=== PATIENT | female | born 1965 | race Caucasian/White ===

== ENCOUNTER 2023-12-10 14:24 | Inpatient (IN) | payer MEDICARE ==
[~2023-12-10] VITALS: Ht 149.9 cm; Wt 49.6 kg
[2023-12-10] MEDS ORDERED: METH25TAB PO (14:41)
[2023-12-10] MEDS ORDERED: AMLO1TAB24 PO (14:41)
[2023-12-10] MEDS ORDERED: OXYC20TA2 PO (14:41)
[2023-12-10] MEDS ORDERED: LISI20TA33 PO (14:41)
[2023-12-10] MEDS ORDERED: GABA800T4 PO (14:41)
[2023-12-10] MEDS ORDERED: ALBU2.5V10 INH (14:41)
[2023-12-10] MEDS ORDERED: ADV250INH INH (14:41)
[2023-12-10 16:19] LABS: BASO % 0.2 % (0.0-1.0); EOS % 0.1 % (0.0-3.0); HEMATOCRIT 45.5 % (36.0-47.0); HEMOGLOBIN 15.1 g/dl (12.0-15.5); LYMPH # 0.7 10^3/uL (1.5-5.0); LYMPH % 3.5 % (24.0-44.0); MEAN CORPUSCULAR HEMOGLOBIN 31.8 pg (27.0-33.0); MEAN CORPUSCULAR HGB CONC 33.2 g/dl (32.0-36.5); MEAN CORPUSCULAR VOLUME 95.8 fl (80.0-96.0); MONO # 1.2 10^3/uL (0.0-0.8); MONO % 6.3 % (2.0-8.0); NEUTROPHILS # 16.6 10^3/uL (1.5-8.5); NEUTROPHILS % 88.9 % (36.0-66.0); PLATELET COUNT, AUTOMATED 211 10^3/uL (150-450); RED BLOOD COUNT 4.75 10^6/uL (4.00-5.40); WHITE BLOOD COUNT 18.7 10^3/uL (4.0-10.0)
[2023-12-10 16:48] LABS: ALBUMIN 3.5 G/DL (3.2-5.2); BILIRUBIN,DIRECT 0.3 MG/DL (<0.4); TOTAL PROTEIN 6.2 G/DL (5.7-8.2)
[2023-12-10] MEDS: cefTRIAXone SOD 1 GM in D5W MINI-BAG PLUS 50 ML IV ONE (17:23)
[2023-12-10] MEDS: ACETAMINOPHEN TAB 650MG DOSE (2X325MG) PO ONE (17:23)
[2023-12-10 17:42] LABS: FREE T4 1.12 NG/DL (0.89-1.76); THYROID STIMULATING HORMONE 1.662 uIU/ML (0.55-4.78)
[2023-12-10] MEDS: LR 1,000 ML IV ONE (20:11)
[2023-12-10] MEDS: MORPHINE 2 MG/ML 1ML VIAL IV ONE (20:40)
[2023-12-10 20:42] LABS: INR 0.99; PROTHROMBIN TIME 12.8 SECONDS (12.5-14.5)
[2023-12-10 21:01] LABS: BLOOD UREA NITROGEN 11 MG/DL (9-23); CALCIUM LEVEL 8.3 MG/DL (8.5-10.1); CARBON DIOXIDE LEVEL 26 MMOL/L (20-31); CHLORIDE LEVEL 99 MMOL/L (98-107); CREATININE FOR GFR 0.92 MG/DL (0.55-1.30); GLOMERULAR FILTRATION RATE > 60.0 (>51); GLUCOSE, FASTING 103 MG/DL (60-100); MAGNESIUM LEVEL 1.7 MG/DL (1.8-2.4); POTASSIUM SERUM 4.2 MMOL/L (3.5-5.1); SODIUM LEVEL 132 MMOL/L (136-145)
[2023-12-10 21:08] LABS: PROCALCITONIN 10.06 ng/ml
[2023-12-10] MEDS: LR 1,000 ML IV SCH (21:18)
[2023-12-10] MEDS: methylPREDNISolone 125MG 2ML VIAL IV ONE (21:38)
[2023-12-10] MEDS: IPRATROPIUM 0.5MG/ALBUTEROL 2.5MG INH SOL UD 3ML (DUONEB) NEB ONE (21:53)
[2023-12-10] MEDS ORDERED: AZIT-12 PO (22:14)
[2023-12-10] MEDS ORDERED: HOME MED LIST COMPLETE! XX SCH (22:15)
[2023-12-10] MEDS ORDERED: ACETAMINOPHEN TAB 650MG DOSE (2X325MG) PO PRN (22:50)
[2023-12-10] MEDS ORDERED: ALBUTEROL SULFATE 2.5MG/0.5ML INH NEB SOLN NEB PRN (22:55)
[2023-12-10] MEDS: oxyCODONE 5MG TAB PO PRN (23:53)
[2023-12-11 00:40] VITALS: BP 161/73; TEMP 97.7; O2SAT 61
[2023-12-11] MEDS: GABAPENTIN 400MG CAP PO SCH (01:04)
[2023-12-11] MEDS: LR 1,000 ML IV SCH (01:05)
[2023-12-11] MEDS: IPRATROPIUM 0.5MG/ALBUTEROL 2.5MG INH SOL UD 3ML (DUONEB) NEB SCH (02:56)
[2023-12-11 04:10] VITALS: BP 126/48; TEMP 97.7; O2SAT 91
[2023-12-11] MEDS: methylPREDNISolone 125MG 2ML VIAL IV SCH (06:02)
[2023-12-11] MEDS: HEPARIN SOD (PORCINE) 5000UNITS/ML 1ML VIAL/SYRINGE SC SCH (06:02)
[2023-12-11] MEDS: amLODIPine 5 MG TAB PO SCH (08:08)
[2023-12-11 08:22] LABS: HEMATOCRIT 37.9 % (36.0-47.0); MEAN CORPUSCULAR HEMOGLOBIN 32.1 pg (27.0-33.0); MEAN CORPUSCULAR HGB CONC 33.2 g/dl (32.0-36.5); MEAN CORPUSCULAR VOLUME 96.7 fl (80.0-96.0); PLATELET COUNT, AUTOMATED 163 10^3/uL (150-450); RED BLOOD COUNT 3.92 10^6/uL (4.00-5.40); WHITE BLOOD COUNT 15.4 10^3/uL (4.0-10.0)
[2023-12-11 08:23] LABS: HEMOGLOBIN 12.6 g/dl (12.0-15.5)
[2023-12-11] MEDS ORDERED: GABAPENTIN 400MG CAP PO SCH (09:00)
[2023-12-11 09:10] LABS: ALBUMIN 2.6 G/DL (3.2-5.2); ALKALINE PHOSPHATASE 125 U/L (46-116); ALT/SGPT 18 U/L (7.0-40); AST/SGOT 16 U/L (<34); BILIRUBIN,TOTAL 0.5 MG/DL (0.3-1.2); BLOOD UREA NITROGEN 9 MG/DL (9-23); CALCIUM LEVEL 8.2 MG/DL (8.5-10.1); CARBON DIOXIDE LEVEL 27 MMOL/L (20-31); CHLORIDE LEVEL 101 MMOL/L (98-107); CREATININE FOR GFR 0.74 MG/DL (0.55-1.30); GLOMERULAR FILTRATION RATE > 60.0 (>51); GLUCOSE, FASTING 215 MG/DL (60-100); POTASSIUM SERUM 4.5 MMOL/L (3.5-5.1); SODIUM LEVEL 132 MMOL/L (136-145); TOTAL PROTEIN 5.3 G/DL (5.7-8.2)
[2023-12-11 10:27] LABS: PROCALCITONIN 5.62 ng/ml
[2023-12-11] MEDS: ADVAIR HFA 115/21MCG INHALER INH SCH (11:05)
[2023-12-11 12:00] VITALS: BP 139/78; TEMP 97.7; O2SAT 93
[2023-12-11] MEDS: DOXYCYCLINE HYCLATE 100MG TABLET PO SCH (13:51)
[2023-12-11] MEDS: cefTRIAXone SOD 1 GM in D5W MINI-BAG PLUS 50 ML IV SCH (17:00)
[2023-12-11 20:00] VITALS: BP 150/80; TEMP 98.1; O2SAT 95
[2023-12-11] MEDS: DOCUSATE SODIUM 100MG CAPSULE PO SCH (21:14)
[2023-12-12 04:00] VITALS: BP 129/74; TEMP 97.9; O2SAT 93
[2023-12-12 06:43] LABS: HEMATOCRIT 34.9 % (36.0-47.0); HEMOGLOBIN 11.5 g/dl (12.0-15.5); MEAN CORPUSCULAR HEMOGLOBIN 32.1 pg (27.0-33.0); MEAN CORPUSCULAR VOLUME 97.5 fl (80.0-96.0); PLATELET COUNT, AUTOMATED 153 10^3/uL (150-450); RED BLOOD COUNT 3.58 10^6/uL (4.00-5.40)
[2023-12-12 07:34] LABS: ALBUMIN 2.5 G/DL (3.2-5.2); ALKALINE PHOSPHATASE 111 U/L (46-116); ALT/SGPT 18 U/L (7.0-40); AST/SGOT 8 U/L (<34); BILIRUBIN,TOTAL 0.3 MG/DL (0.3-1.2); BLOOD UREA NITROGEN 8 MG/DL (9-23); CARBON DIOXIDE LEVEL 31 MMOL/L (20-31); CHLORIDE LEVEL 107 MMOL/L (98-107); CREATININE FOR GFR 0.72 MG/DL (0.55-1.30); GLOMERULAR FILTRATION RATE > 60.0 (>51); GLUCOSE, FASTING 113 MG/DL (60-100); MAGNESIUM LEVEL 1.9 MG/DL (1.8-2.4); POTASSIUM SERUM 4.4 MMOL/L (3.5-5.1); SODIUM LEVEL 140 MMOL/L (136-145)
[2023-12-12] MEDS: FUROSEMIDE 40MG/4ML VIAL IV ONE (08:41)
[2023-12-12] MEDS: guaiFENesin ER TABLET 600 MG TAB PO SCH (09:19)
[2023-12-12 12:21] VITALS: BP 139/67; TEMP 97.9; O2SAT 90
[2023-12-12] MEDS: BUDESONIDE 0.5 MG/2 ML INHALATION SUSPENSION NEB SCH (13:17)
[2023-12-12 21:02] VITALS: BP 109/57; TEMP 97.7; O2SAT 89
[2023-12-13 03:55] VITALS: BP 114/61; TEMP 97.7; O2SAT 89
[2023-12-13 07:52] LABS: HEMATOCRIT 36.6 % (36.0-47.0); HEMOGLOBIN 11.9 g/dl (12.0-15.5); MEAN CORPUSCULAR HEMOGLOBIN 31.6 pg (27.0-33.0); MEAN CORPUSCULAR HGB CONC 32.5 g/dl (32.0-36.5); MEAN CORPUSCULAR VOLUME 97.3 fl (80.0-96.0); PLATELET COUNT, AUTOMATED 186 10^3/uL (150-450); RED BLOOD COUNT 3.76 10^6/uL (4.00-5.40); WHITE BLOOD COUNT 18.1 10^3/uL (4.0-10.0)
[2023-12-13 08:16] LABS: ALBUMIN 2.7 G/DL (3.2-5.2); ALKALINE PHOSPHATASE 103 U/L (46-116); ALT/SGPT 17 U/L (7.0-40); AST/SGOT 9 U/L (<34); BILIRUBIN,TOTAL 0.5 MG/DL (0.3-1.2); BLOOD UREA NITROGEN 15 MG/DL (9-23); CARBON DIOXIDE LEVEL 34 MMOL/L (20-31); CHLORIDE LEVEL 103 MMOL/L (98-107); CREATININE FOR GFR 0.75 MG/DL (0.55-1.30); GLOMERULAR FILTRATION RATE > 60.0 (>51); GLUCOSE, FASTING 109 MG/DL (60-100); POTASSIUM SERUM 4.2 MMOL/L (3.5-5.1); SODIUM LEVEL 139 MMOL/L (136-145); TOTAL PROTEIN 5.3 G/DL (5.7-8.2)
[2023-12-13] MEDS: MIRALAX *UNIT DOSE* 17GM PACKET PO SCH (11:40)
[2023-12-13 12:00] VITALS: BP 133/65; TEMP 97.9; O2SAT 91
[2023-12-13 19:54] VITALS: O2SAT 95
[2023-12-13 19:58] VITALS: BP 140/66; TEMP 98.2; O2SAT 98
[2023-12-13] MEDS: SENNA 8.6 MG TAB (SENOKOT) PO SCH (21:18)
[2023-12-14 04:02] VITALS: BP 140/62; TEMP 97.8; O2SAT 96
[2023-12-14 07:13] LABS: HEMATOCRIT 36.7 % (36.0-47.0); HEMOGLOBIN 11.9 g/dl (12.0-15.5); MEAN CORPUSCULAR HEMOGLOBIN 31.6 pg (27.0-33.0); MEAN CORPUSCULAR HGB CONC 32.4 g/dl (32.0-36.5); MEAN CORPUSCULAR VOLUME 97.3 fl (80.0-96.0); PLATELET COUNT, AUTOMATED 203 10^3/uL (150-450); RED BLOOD COUNT 3.77 10^6/uL (4.00-5.40); WHITE BLOOD COUNT 11.6 10^3/uL (4.0-10.0)
[2023-12-14 08:03] LABS: ALBUMIN 2.7 G/DL (3.2-5.2); ALKALINE PHOSPHATASE 93 U/L (46-116); ALT/SGPT 16 U/L (7.0-40); AST/SGOT < 8 U/L (<34); BILIRUBIN,TOTAL 0.3 MG/DL (0.3-1.2); BLOOD UREA NITROGEN 17 MG/DL (9-23); CALCIUM LEVEL 8.6 MG/DL (8.5-10.1); CARBON DIOXIDE LEVEL 30 MMOL/L (20-31); CHLORIDE LEVEL 103 MMOL/L (98-107); CREATININE FOR GFR 0.73 MG/DL (0.55-1.30); GLOMERULAR FILTRATION RATE > 60.0 (>51); GLUCOSE, FASTING 132 MG/DL (60-100); POTASSIUM SERUM 4.2 MMOL/L (3.5-5.1); SODIUM LEVEL 138 MMOL/L (136-145); TOTAL PROTEIN 5.1 G/DL (5.7-8.2)
[2023-12-14 12:00] VITALS: BP 150/71; TEMP 98.2; O2SAT 89
[2023-12-14] MEDS: SYMBICORT 160/4.5MCG INHALER 6GM INH SCH (20:11)
[2023-12-14 20:23] VITALS: BP 174/81; TEMP 98.1; O2SAT 97
[2023-12-15 04:06] VITALS: BP 150/73; TEMP 98.2; O2SAT 98
[2023-12-15 07:11] LABS: BASO % 0.2 % (0.0-1.0); HEMATOCRIT 40.1 % (36.0-47.0); HEMOGLOBIN 13.2 g/dl (12.0-15.5); LYMPH # 0.9 10^3/uL (1.5-5.0); LYMPH % 6.7 % (24.0-44.0); MEAN CORPUSCULAR HGB CONC 32.9 g/dl (32.0-36.5); MEAN CORPUSCULAR VOLUME 97.3 fl (80.0-96.0); MONO # 0.7 10^3/uL (0.0-0.8); MONO % 5.1 % (2.0-8.0); NEUTROPHILS # 11.6 10^3/uL (1.5-8.5); NEUTROPHILS % 86.7 % (36.0-66.0); PLATELET COUNT, AUTOMATED 239 10^3/uL (150-450); RED BLOOD COUNT 4.12 10^6/uL (4.00-5.40); WHITE BLOOD COUNT 13.4 10^3/uL (4.0-10.0)
[2023-12-15 07:43] LABS: BLOOD UREA NITROGEN 20 MG/DL (9-23); CALCIUM LEVEL 8.8 MG/DL (8.5-10.1); CARBON DIOXIDE LEVEL 30 MMOL/L (20-31); CHLORIDE LEVEL 105 MMOL/L (98-107); CREATININE FOR GFR 0.81 MG/DL (0.55-1.30); GLOMERULAR FILTRATION RATE > 60.0 (>51); GLUCOSE, FASTING 120 MG/DL (60-100); POTASSIUM SERUM 4.8 MMOL/L (3.5-5.1); SODIUM LEVEL 140 MMOL/L (136-145)
[2023-12-15 12:00] VITALS: BP 177/79; TEMP 98.2; O2SAT 98
[2023-12-15] MEDS: LevoFLOXacin 750 MG TABLET PO SCH (18:11)
[2023-12-15 20:00] VITALS: BP 124/65; TEMP 98.2; O2SAT 96
[2023-12-15] MEDS: CEPACOL LOZENGE PO PRN (21:14)
[2023-12-16 03:58] VITALS: BP 169/85; TEMP 98.1; O2SAT 92
[2023-12-16 06:58] LABS: BASO # 0.1 10^3/uL (0.0-0.2); BASO % 0.3 % (0.0-1.0); EOS % 0.1 % (0.0-3.0); HEMATOCRIT 38.3 % (36.0-47.0); HEMOGLOBIN 12.6 g/dl (12.0-15.5); LYMPH # 1.4 10^3/uL (1.5-5.0); LYMPH % 9.6 % (24.0-44.0); MEAN CORPUSCULAR HEMOGLOBIN 31.5 pg (27.0-33.0); MEAN CORPUSCULAR HGB CONC 32.9 g/dl (32.0-36.5); MEAN CORPUSCULAR VOLUME 95.8 fl (80.0-96.0); MONO # 1.1 10^3/uL (0.0-0.8); MONO % 7.4 % (2.0-8.0); NEUTROPHILS # 11.9 10^3/uL (1.5-8.5); NEUTROPHILS % 78.9 % (36.0-66.0); PLATELET COUNT, AUTOMATED 266 10^3/uL (150-450); WHITE BLOOD COUNT 15.1 10^3/uL (4.0-10.0)
[2023-12-16 07:32] LABS: BLOOD UREA NITROGEN 21 MG/DL (9-23); CALCIUM LEVEL 8.7 MG/DL (8.5-10.1); CARBON DIOXIDE LEVEL 28 MMOL/L (20-31); CHLORIDE LEVEL 107 MMOL/L (98-107); CREATININE FOR GFR 0.88 MG/DL (0.55-1.30); GLOMERULAR FILTRATION RATE > 60.0 (>51); GLUCOSE, FASTING 105 MG/DL (60-100); POTASSIUM SERUM 4.7 MMOL/L (3.5-5.1); SODIUM LEVEL 141 MMOL/L (136-145)
[2023-12-16 07:38] LABS: PROCALCITONIN 0.16 ng/ml
[2023-12-16 08:06] VITALS: BP 141/66
[2023-12-16] MEDS: predniSONE 20 MG TAB PO SCH (08:07)
[2023-12-16] MEDS ORDERED: LEVO1TAB40 PO (10:11)
[2023-12-16] MEDS ORDERED: SYMB16INH INH (10:11)
[2023-12-16] MEDS ORDERED: TREL1AER PO (10:17)
[2023-12-16] MEDS ORDERED: PRED10TA2 PO (10:19)
[2023-12-16 10:24] VITALS: O2SAT 90
== END 2023-12-16 12:13 | disposition home or self-care (01) | DRG 871 ==
LOC: M ED 14:24 → M ED INP 22:50 → M MSPAV 12-11 00:27
PROVIDERS: ADMIT Internal Medicine; ATTEND Student in an Organized Health Care Education/Training Program
PROC: B246ZZZ Ultrasonography of Right and Left Heart (ICD-10-PCS; principal; 2023-12-14)
DX: A41.51 Sepsis due to Escherichia coli [E. coli] (principal); J18.9 Pneumonia, unspecified organism; N39.0 Urinary tract infection, site not specified; J44.1 Chronic obstructive pulmonary disease with (acute) exacerbation; J96.11 Chronic respiratory failure with hypoxia; J44.0 Chronic obstructive pulmonary disease with (acute) lower respiratory infection; N10 Acute pyelonephritis; E05.00 Thyrotoxicosis with diffuse goiter without thyrotoxic crisis or storm; I10 Essential (primary) hypertension; G47.33 Obstructive sleep apnea (adult) (pediatric); L40.50 Arthropathic psoriasis, unspecified; M79.7 Fibromyalgia; F17.200 Nicotine dependence, unspecified, uncomplicated; B96.20 Unspecified Escherichia coli [E. coli] as the cause of diseases classified elsewhere; Z88.2 Allergy status to sulfonamides; Z79.899 Other long term (current) drug therapy; Z85.79 Personal history of other malignant neoplasms of lymphoid, hematopoietic and related tissues